=== PATIENT | female | born 1950 | race Caucasian/White ===

== ENCOUNTER 2018-11-06 05:17 | Inpatient (IN) | payer BC, MEDICARE ==
[2018-11-03 15:22] VITALS: BMI 20.5
[2018-11-06] VITALS (27 sets, daily range): BP systolic 106–129; BP diastolic 44–65; PULSE 50–72; RESP 12–24; Ht 167.6 cm; Wt 56.7 kg
[~2018-11-06] VITALS: Ht 167.6 cm; Wt 56.7 kg
[~2018-11-06 05:17] MED LIST: BUPIVACAINE 0.5% (SDV) 30 ML, morphine SULFATE (PF) 8 MG, EPINEPHrine 0.3 MG, KETOROLAC... IRR SCH; CEFAZOLIN 2 GM/50 ML (PMX) 50 ML IVPB ONE; DEXAMETHASONE 1 MG TAB PO ONE; GABAPENTIN 300 MG CAP PO ONE; SOD CHLORIDE 0.9% 100 ML, TRANEXAMIC ACID 3,000 MG IRR ONE; TRANEXAMIC ACID 1GM/100ML(PMX) 100 ML IVPB ONE
[2018-11-06] MEDS ORDERED: LEVO50TA7 PO (05:43)
[2018-11-06] MEDS ORDERED: ATOR40TA68 PO (05:43)
[2018-11-06] MEDS ORDERED: MIRT7.5T8 PO (05:43)
[2018-11-06] MEDS ORDERED: ADV25050 INHALATION (05:43)
--- NOTE | 2018-11-06 05:55 | HPN ---
Date/Time of Note Date/Time of Note DATE: 11/06/18 TIME: 05:54 Interval H&P Admission Note Pt. seen H&P reviewed: No system changes RAMON RAMIREZ MD Nov 06, 2018 05:55
--- NOTE | 2018-11-06 05:58 | OPR ---
Date/Time of Note Date/Time of Note DATE: 11/06/18 TIME: 05:57 Operative Report Procedure Date: Nov 06, 2018 Preoperative Diagnosis Right hip primary arthritis Postoperative Diagnosis Right hip primary arthritis Operation/Procedure Performed 1. Right total hip arthroplasty 2. Injection of PRP Surgeon see signature line Clerical Investigator Ildefonso Carolina MD Anesthesia Type: general Estimated Blood Loss: 150 - 200 ml's Transfusion none Specimen See op note Grafts/Implants See op note Complications none Pt Condition Post Procedure: stable Disposition: PACU Procedure Description Clerical Investigator Surgeon: Ildefonso Carolina MD was integral to the positioning and assistance necessary in the exposure of the hip joint as well as protection of the neurovascular structures. In my opinion at the assistance offered by a surgical dressing maker is insufficient and Dr. Carolina should be compensated for his time. PROCEDURE IN DETAIL: Following the administration of general endotracheal anesthesia supplemented with a spinal anesthetic, the patient was placed in the supine position. The antecubital fossa on the right was prepped and 60 cc of blood were aspirated. Under sterile conditions, the blood was passed off to the consumer sales representative from the company who prepared the PRP solution. The left lower extremity was then prepped and draped in the usual sterile fashion. A evaporator supervisor radiograph was obtained for preliminary limb length and femoral size as well as acetabular size. A lateral incision was then made exposing the tensor fascia the fascia was incised the tensor was retracted laterally and the vessels were cauterized. The anterior capsule was then identified and prepared. A capsulectomy was then performed and the femoral head was then evaluated. Severe arthritic changes were noted. A femoral head cut was then made in the appropriate degree of version and inclination. Following dislocation, severe arthritic changes were noted with very certain severe cystic changes in the femoral head. The acetabulum was then exposed and a capsulectomy and labrectomy were completed. The central portion was then entered and serially reamed up to the 47 mm size. A Depuy [place] cup which was 48 mm, with a standard liner was then fit into position with solid fixation. A 30 mm screw was used for additio nal fixation. Attention was then directed to the femur, the femur was exposed and prepared. The canal was entered and serially reamed up to the size 3. The femoral canal was then thoroughly irrigated and the PRP solution was then instilled into the femoral canal. A size 3 Depuy Actis stem was then inserted with solid fixation. A 28 mm, +1.5 mm femoral head, which was ceramic was then inserted. The leg was taken through full range of motion with no evident instability. In addition, radiographs revealed excellent position with reproduction of the limb lengths within a millimeter. The wound was irrigated thoroughly. The wound was then closed in layers and a Prenio for the final cover. This was watertight. Estimated blood loss was procedure was 200 cc. Postoperative radiographs will be obtained in the recovery room. RAMON RAMIREZ MD Nov 06, 2018 05:58
[2018-11-06] MEDS ORDERED: BUPIVACAINE 0.5% (SDV) 30 ML, morphine SULFATE (PF) 8 MG, EPINEPHrine 0.3 MG, KETOROLAC... IRR SCH ×7 (06:00)
[2018-11-06] MEDS ORDERED: SOD CHLORIDE 0.9% 100 ML, TRANEXAMIC ACID 3,000 MG IRR ONE ×2 (06:00)
[2018-11-06] MEDS ORDERED: DEXAMETHASONE 1 MG TAB PO ONE (06:00)
[2018-11-06] MEDS ORDERED: CEFAZOLIN 2 GM/50 ML (PMX) 50 ML IVPB ONE (06:00)
[2018-11-06] MEDS ORDERED: TRANEXAMIC ACID 1GM/100ML(PMX) 100 ML IVPB ONE (06:00)
[2018-11-06] MEDS ORDERED: LACTATED RINGER'S 1,000 ML IV* SCH (06:00)
[2018-11-06] MEDS ORDERED: GABAPENTIN 300 MG CAP PO ONE (06:00)
[2018-11-06] MEDS ORDERED: POLYMYXIN/BACITRACIN 1L IRRIG ONE (06:44)
[2018-11-06] MEDS ORDERED: THROMBIN (BOVINE) 5,000 UNIT VIAL TP ONE (06:44)
[2018-11-06] MEDS ORDERED: CA CHLORIDE (GM) 10% 10 ML INJ ONE (06:44)
[2018-11-06] MEDS ORDERED: EPHEDrine SULFATE 50 MG/5 ML SYG ONE (07:00)
--- NOTE | 2018-11-06 07:02 | PREAC ---
Date/Time of Note Date/Time of Note DATE: 11/06/18 TIME: 07:00 Anesthesia Eval and Record Evaluation Time Pre-Procedure Interview DATE: 11/06/18 TIME: 07:00 Age 68 Sex female NPO: 8 hrs Preoperative diagnosis Right Hip OA Planned procedure Right THR Past Medical History Past Medical History: Includes Cardio: Dyslipidemia Endo: Hypothyroid Pulm: Asthma Musculoskeletal: Osteoarthritis Psych: Anxiety Surgery & Anesthesia Issues No known issue Meds Anticoagulation: No Beta Fili within 24 hr: No Reason Beta Fili not given: Pt. not on B-Fili Reported Medications Mirtazapine* (Mirtazapine*) 7.5 Mg Tablet, 3-7 MG PO every other day, TAB 11/06/18 Atorvastatin* (Atorvastatin*) 40 Mg Tablet, 20 MG PO QHS, #30 TAB 11/06/18 Levothyroxine Sodium* (Levothyroxine Sodium*) 50 Mcg Tablet, 50 MCG PO BEFORE BREAKFAST, #30 TAB 11/06/18 Salmeterol Xinaf/Fluticasone* (Advair*) 250-50 Diskus Inhaler, 1 INH INHALATION BID, #1 INHALER 11/06/18 Current Medications Bupivacaine HCl/ Morphine Sulfate/ Epinephrine/ Ketorolac Tromethamine/ Clonidine/Sodium Chloride/ Vancomycin HCl INTRA-OP IRR ; Start 11/06/18 at 06:00 Lactated Ringer's 1,000 ml @ 0 mls/hr Q0M IV* Last administered on 11/06/18at 05:49; Admin Dose 30 MLS/HR; Start 11/06/18 at 06:00; Stop 11/06/18 at 18:00 Meds reviewed: Yes Allergies Coded Allergies: No Known Allergy (Unverified , 11/06/18) Allergies Reviewed: Yes Labs/Studies Labs Reviewed: Reviewed by anesthesiologist test: N/A Studies: ECG (n/a), CXR (n/a) Pre-procedure Exam Last vitals Vital Signs Date Temp Pulse Resp B/P (MAP) Pulse Ox O2 O2 Flow FiO2 Time Delivery Rate 11/06/18 98.0 57 18 126/60 100 Room Air 06:03 (82) Airway: Adequate mouth opening, Adequate thyromental dist Mallampati: Mallampati II Teeth: Normal Lung: Normal Heart: Normal ASA Physical Status ASA physical status: 3 Emergency: None Planned Anesthetic General/MAC: ETT, LMA Neuraxial: Spinal Nerve block: Other (Right Fascia Iliaca Block) Planned Pain Management Sub-arachniod narcotics, Single shot nerve block, Parenteral pain med Pre-operative Attestations Prior to commencing anesthesia and surgery, the patient was re-evaluated, there was verification of: *The patient's identity *The results of appropriate recent lab work and preoperative vital signs *The above evaluation not changing prior to induction *Anesthetic plan, risk benefits, alternative and complications discussed with p atient/family; questions answered; patient/family understands, accepts and wishes to proceed. SHAHNAZ ESPARZA MD Nov 06, 2018 07:02
[2018-11-06] MEDS ORDERED: ROCURONIUM 50 MG INJ ONE (07:05)
[2018-11-06] MEDS ORDERED: CEFAZOLIN 1 GM INJ ONE (07:05)
[2018-11-06] MEDS ORDERED: morphine SULFATE/PF (10 MG/10 ML) INJ ONE (07:05)
[2018-11-06] MEDS ORDERED: HYDROCORTISONE 100 MG INJ ONE (07:05)
[2018-11-06] MEDS ORDERED: MIDAZOLAM 1 MG/ML 2 ML INJ ONE (07:05)
[2018-11-06] MEDS ORDERED: PROPOFOL 20 ML ONE (07:05)
[2018-11-06] MEDS ORDERED: TRANEXAMIC ACID 1GM/100ML(PMX) 0 ML ONE (07:25)
[2018-11-06] MEDS ORDERED: TRANEXAMIC ACID 1GM/100ML(PMX) 100 ML ONE (07:25)
[2018-11-06] MEDS ORDERED: ONDANSETRON 4 MG INJ ONE (07:38)
[2018-11-06] MEDS ORDERED: KETOROLAC 30 MG INJ ONE (07:38)
[2018-11-06] MEDS ORDERED: METOCLOPRAMIDE 10 MG INJ ONE (07:38)
[2018-11-06] MEDS ORDERED: DEXAMETHASONE 4 MG/ML 5 ML INJ ONE (07:38)
[2018-11-06] MEDS ORDERED: ROPIVACAINE 0.2% 20 ML VIAL ONE (07:42)
[2018-11-06] MEDS ORDERED: HETASTARCH 6% NACL 500 ML ONE (07:44)
[2018-11-06] MEDS ORDERED: GLYCOPYRROLATE 0.4 MG INJ ONE (07:54)
[2018-11-06] MEDS ORDERED: NEOSTIGMINE 10 MG INJ ONE (07:54)
[2018-11-06] MEDS ORDERED: EPHEDrine SULFATE 50 MG/5 ML SYG IV PRN (08:00)
[2018-11-06] MEDS ORDERED: LABETALOL HCL 20MG INJ IV PRN (08:00)
[2018-11-06] MEDS ORDERED: HYDROmorphONE 0.5 MG/0.5 ML SYG IV PRN ×2 (08:00)
[2018-11-06] MEDS ORDERED: morphine 2 MG INJ IV PRN ×2 (08:00)
[2018-11-06] MEDS ORDERED: METOCLOPRAMIDE 10 MG INJ IV PRN (08:00)
[2018-11-06] MEDS ORDERED: HYDROCODONE/APAP (5/325) TAB PO PRN (08:00)
[2018-11-06] MEDS ORDERED: OXYCODONE/ACETAMINOPHEN (5/325) TAB PO PRN (08:00)
[2018-11-06] MEDS ORDERED: NALOXONE (0.4 MG/ML) INJ IV PRN ×2 (08:00)
[2018-11-06] MEDS ORDERED: ALBUMIN HUMAN 5% 250 ML IV PRN (08:00)
[2018-11-06] MEDS ORDERED: MEPERIDINE 25 MG INJ IV PRN (08:00)
[2018-11-06] MEDS ORDERED: DIPHENHYDRAMINE 50 MG INJ IV PRN ×3 (08:00→09:00)
[2018-11-06] MEDS ORDERED: HYDROmorphONE 1 MG/5 ML IV SYRINGE IV PRN ×3 (08:00)
[2018-11-06] MEDS ORDERED: KETOROLAC 30 MG INJ IV PRN (08:00)
[2018-11-06] MEDS ORDERED: hydrALAzine 20 MG INJ IV PRN (08:00)
[2018-11-06] MEDS ORDERED: NALBUPHINE HCL (10 MG/1 ML) INJ IV PRN (08:00)
[2018-11-06] MEDS ORDERED: FENTAnyl 50 MCG/ML VIAL IV PRN ×3 (08:00)
[2018-11-06] MEDS ORDERED: ONDANSETRON 4 MG INJ IV PRN ×3 (08:00→09:00)
[2018-11-06] MEDS ORDERED: ACETAMINOPHEN 500 MG TAB PO PRN (08:00)
[2018-11-06] MEDS: LACTATED RINGER'S 1,000 ML IV SCH ×3 (08:39→19:51)
--- NOTE | 2018-11-06 08:44 | PDOCDIS ---
Discharge Instructions DIAGNOSIS Discharge Diagnosis Hip arthritis CONDITION [id number] Patient Condition: [id number] Good HOME CARE INSTRUCTIONS: [id number] Diet Instructions: [id number] Regular ACTIVITY: [id number] Activity Restrictions: [id number] Rest between Activity Keep Limb Elevated [id number] Bathing Restrictions: [id number] Shower FOLLOW UP/APPOINTMENTS Follow-up Plan 2 weeks in the office SCHOOL/WORK RELEASE May return to School/Work with: With Restrictions School/Work Release Comment: No hip extension for 6 weeks RAMON RAMIREZ MD Nov 06, 2018 08:44
--- NOTE | 2018-11-06 08:58 | PAC ---
Date/Time of Note Date/Time of Note DATE: 11/06/18 TIME: 08:58 Post-Anesthesia Notes Post-Anesthesia Note Last documented vital signs Vital Signs Date Temp Pulse Resp B/P (MAP) Pulse Ox O2 O2 Flow FiO2 Time Delivery Rate 11/06/18 98.3 57 18 126/60 100 Room Air 09:03 (82) Activity: WNL Respiratory function: WNL Cardiovascular function: WNL Mental status: Baseline Pain reasonably controlled: Yes Hydration appropriate: Yes Nausea/Vomiting absent: Yes SHAHNAZ ESPARZA MD Nov 06, 2018 08:58
[2018-11-06] MEDS ORDERED: HYDROmorphONE 1 MG/ML SYG IV PRN (09:00)
[2018-11-06] MEDS ORDERED: NACL 0.9% 3 ML SYG IV SCH (09:00)
[2018-11-06] MEDS ORDERED: ZOLPIDEM 5 MG TAB PO PRN (09:00)
[2018-11-06] MEDS ORDERED: NON-FORMULARY/PATIENT OWN MED (Salmeterol Xinaf/Fluticasone* (Advair*) 1 INH) INHALATION SCH (09:00)
[2018-11-06] MEDS ORDERED: MAGNESIUM HYDROXIDE 30ML CUP PO PRN (09:00)
[2018-11-06] MEDS ORDERED: oxyCODONE 5 MG TAB PO PRN ×3 (09:00)
[2018-11-06] MEDS: ACETAMINOPHEN 1000MG/100ML IV 100 ML IVPB SCH ×2 (09:37→17:20)
[2018-11-06] MEDS: DEXAMETHASONE 2 MG TAB PO SCH ×2 (12:53→17:20)
[2018-11-06] MEDS: CEFAZOLIN 1 GM/50 ML (PMX) 50 ML IVPB SCH ×2 (13:52→21:52)
[2018-11-06] MEDS ORDERED: ATORVASTATIN 40 MG TAB PO SCH (21:00)
[2018-11-06] MEDS ORDERED: GABAPENTIN 300 MG CAP PO SCH (21:00)
[2018-11-06] MEDS: SENNA/DOCUSATE NA (8.6MG/50MG) TAB PO SCH (21:00)
[2018-11-07 00:01] VITALS: BP 110/58; PULSE 62; RESP 19
[2018-11-07] MEDS: DEXAMETHASONE 2 MG TAB PO SCH ×2 (00:44→06:15)
[2018-11-07] MEDS: ACETAMINOPHEN 1000MG/100ML IV 100 ML IVPB SCH (00:46)
--- NOTE | 2018-11-07 05:21 | PN ---
Date/Time of Note Date/Time of Note DATE: 11/07/18 TIME: 05:20 Subjective Awake and alert with no complaints Objective Vitals Vital Signs Date Temp Pulse Resp B/P (MAP) Pulse Ox O2 O2 Flow FiO2 Time Delivery Rate 11/07/18 98.2 62 19 110/58 98 Room Air 00:01 (75) 11/06/18 2.0 15:15 Intake and Output 11/06/18 11/06/18 11/07/18 1515:00 23:00 07:00 IntakeIntake Total 1270 ml 1580 ml 900 ml OutputOutput Total 500 ml 300 ml 1500 ml BalanceBalance 770 ml 1280 ml -600 ml Wound is clean and dry. Neurologically intact. No signs of DVT. Results Result Diagram: 11/06/18 0917 Medications Medications Current Medications Naloxone HCl (Narcan) 0.2 mg Q2M PRN IV .RESP RATE; Start 11/06/18 at 08:00 Hydromorphone HCl (Dilaudid) 0.2 mg Q2H PRN IV .PAIN 1-5; Start 11/06/18 at 08:00 Hydromorphone HCl (Dilaudid) 0.4 mg Q2H PRN IV .PAIN 6-10; Start 11/06/18 at 08:00 Morphine Sulfate (morphine) 2 mg Q2H PRN IV .PAIN 1-5; Start 11/06/18 at 08:00 Morphine Sulfate (morphine) 4 mg Q2H PRN IV .PAIN 6-10; Start 11/06/18 at 08:00 Ketorolac Tromethamine (Toradol) 30 mg Q6H PRN IV .PAIN 6-10; Start 11/06/18 at 08:00; Stop 11/09/18 at 07:59 Acetaminophen (Tylenol Tab) 500 mg Q4H PRN PO .PAIN 1-3; Start 11/06/18 at 08:00 Acetaminophen/ Hydrocodone Bitart ([place] (5/325)) 1 tab Q4H PRN PO .PAIN 4-6; Start 11/06/18 at 08:00 Diphenhydramine HCl (Benadryl) 25 mg Q4H PRN IV .PRURITUS; Start 11/06/18 at 08:00 Nalbuphine HCl (Nubain) 10 mg Q4H PRN IV .PRURITUS; Start 11/06/18 at 08:00 Naloxone HCl (Narcan) 0.2 mg Q2M PRN IV .RESP RATE; Start 11/06/18 at 08:00 Miscellaneous Information (* Miscellaneous Pharmacy Order) DURAMORPH: 0.1 MG SPI... GIVEN NEURAXIAL XX ; Start 11/06/18 at 08:00 Atorvastatin Calcium (Lipitor) 20 mg QHS PO ; Start 11/06/18 at 21:00 Levothyroxine Sodium (Synthroid) 50 mcg BEFORE BREAKFAST PO ; Start 11/07/18 at 07:00 Mirtazapine (Remeron) 4 mg AM PO ; Start 11/07/18 at 09:00 Lactated Ringer's 1,000 ml @ 100 mls/hr Q10H IV Last administered on 11/06/18at 19:51; Admin Dose 100 MLS/HR; Start 11/06/18 at 08:39 Cefazolin Sodium 50 ml @ 100 mls/hr Q8 IVPB Last administered on 11/06/18at 21:52; Admin Dose 100 MLS/HR; Start 11/06/18 at 14:00; Stop 11/07/18 at 06:29 Senna/Docusate Sodium (Senokot-S) 1 tab BID PO ; Start 11/06/18 at 21:00 Simethicone (Mylicon) 80 mg TID PRN PO .GAS; Start 11/06/18 at 09:00 Magnesium Hydroxide (Milk Of Mag) 30 ml BID PRN PO .CONSTIPATION; Start 11/06/18 at 09:00 Magnesium Hydroxide (Milk Of Mag) 30 ml HS PO ; Start 11/08/18 at 21:00 Dexamethasone (Decadron) 2 mg Q6 PO Last administered on 11/07/18at 00:44; Admin Dose 2 MG; Start 11/06/18 at 12:00; Stop 11/07/18 at 06:01 Gabapentin (Neurontin) 300 mg HS PO ; Start 11/06/18 at 21:00 Oxycodone HCl (Roxicodone) 15 mg Q4H PRN PO .PAIN; Start 11/06/18 at 09:00 Oxycodone HCl (Roxicodone) 10 mg Q4H PRN PO .PAIN; Start 11/06/18 at 09:00 Oxycodone HCl (Roxicodone) 5 mg Q4H PRN PO .PAIN; Start 11/06/18 at 09:00 Hydromorphone HCl (Dilaudid) 1 mg Q4H PRN IV .BREAKTHROUGH PAIN; Start 11/06/18 at 09:00 Ondansetron HCl (Zofran Inj) 4 mg Q6H PRN IV NAUSEA/VOMITING Last administered on 11/06/18at 14:19; Admin Dose 4 MG; Start 11/06/18 at 09:00 Diphenhydramine HCl (Benadryl) 25 mg Q6H PRN IV .PRURITUS; Start 11/06/18 at 09:00 Zolpidem Tartrate (Ambien) 10 mg HS PRN PO .INSOMNIA; Start 11/06/18 at 09:00 IV Flush (NS 3 ml) 3 ml per protocol IV ; Start 11/06/18 at 09:00 Aspirin (Ecotrin) 325 mg DAILY PO ; Start 11/07/18 at 09:00 Fluticasone/ Vilanterol (Breo Ellipta 100-25 Mcg Inh) 1 inh DAILY INH ; Start 11/07/18 at 09:00 VTE Prophylaxis Risk score (from Nsg)>0 risk: 6 SCD applied (from Nsg): Yes Lines/Catheters IV Catheter Type: Saline Lock Tavera in Place: No Assessment/Plan Assessment/Plan Assessment: Status post total hip replacement Plan: Begin physical therapy this morning discharge when independently ambulatory as per physical therapy RAMON RAMIREZ MD Nov 07, 2018 05:21
--- NOTE | 2018-11-07 05:21 | DS ---
Date/Time of Note Date/Time of Note DATE: 11/07/18 TIME: 05:21 Discharge Summary Admission/Discharge Info Admit Date/Time Nov 06, 2018 at 05:17 Discharge Date/Time November 07, 2018 Discharge Diagnosis Hip arthritis Patient Condition: Good Hospital Course Patient was admitted and underwent uncomplicated procedure. Postoperative day #1 she is afebrile stable independently ambulatory discharged home Home Meds Reported Medications Mirtazapine* (Mirtazapine*) 7.5 Mg Tablet, 3-7 MG PO every other day, TAB 11/06/18 Atorvastatin* (Atorvastatin*) 40 Mg Tablet, 20 MG PO QHS, #30 TAB 11/06/18 Levothyroxine Sodium* (Levothyroxine Sodium*) 50 Mcg Tablet, 50 MCG PO BEFORE BREAKFAST, #30 TAB 11/06/18 Salmeterol Xinaf/Fluticasone* (Advair*) 250-50 Diskus Inhaler, 1 INH INHALATION BID, #1 INHALER 11/06/18 Follow-up Plan 2 weeks in the office Primary Care Provider Not On Staff Doctor Pending Labs Laboratory Tests Test 11/06/18 09:17 White Blood Count 6.8 10^3/ul (4.8-10.8) Red Blood Count 3.41 10^6/ul (4.20-5.40) Hemoglobin 10.4 g/dl (12.0-16.0) Hematocrit 31.5 % (37.0-47.0) Mean Corpuscular Volume 92.4 fl (82.0-101.0) Mean Corpuscular Hemoglobin 30.5 pg (29.0-33.0) Mean Corpuscular Hemoglobin Concent 33.0 g/dl (32.0-37.0) Red Cell Distribution Width 12.1 % (11.5-14.5) Platelet Count 231 10^3/UL (140-415) Mean Platelet Volume 10.4 fl (7.4-10.4) Immature Granulocytes % 1.300 % (0.001-0.429) Neutrophils % 85.6 % (39.0-77.0) Lymphocytes % 9.2 % (15.0-51.0) Monocytes % 2.8 % (0.0-11.0) Eosinophils % 0.4 % (0.0-7.0) Basophils % 0.7 % (0.0-2.0) Nucleated Red Blood Cells % 0.0 /100WBC (0.0-0.0) Immature Granulocytes # 0.090 10^3/ul (0.0-0.031) Neutrophils # 5.8 10^3/ul (1.6-7.5) Lymphocytes # 0.6 10^3/ul (0.8-2.9) Monocytes # 0.2 10^3/ul (0.3-0.9) Eosinophils # 0.0 10^3/ul (0.0-0.5) Basophils # 0.1 10^3/ul (0.0-0.1) Nucleated Red Blood Cells # 0.0 10^3/ul (0.0-0.0) RAMON RAMIREZ MD Nov 07, 2018 05:21
[2018-11-07] MEDS: LACTATED RINGER'S 1,000 ML IV SCH (06:14)
[2018-11-07] MEDS: CEFAZOLIN 1 GM/50 ML (PMX) 50 ML IVPB SCH (06:14)
[2018-11-07] MEDS ORDERED: LEVOTHYROXINE 50 MCG TAB PO SCH (07:00)
[2018-11-07 07:34] VITALS: BP 101/50; PULSE 65; RESP 18
[2018-11-07] MEDS ORDERED: FLUTICASONE/VILANTEROL 100-25 INH SCH (09:00)
[2018-11-07] MEDS ORDERED: ASPIRIN (EC) 325 MG TAB PO SCH (09:00)
[2018-11-07] MEDS: SENNA/DOCUSATE NA (8.6MG/50MG) TAB PO SCH (09:00)
[2018-11-07] MEDS ORDERED: MIRTAZAPINE 15 MG TAB PO SCH (09:00)
[2018-11-07 09:20] VITALS: BP 118/59; PULSE 62; RESP 18
[2018-11-07 13:36] VITALS: BP 124/58; PULSE 78; RESP 18
[2018-11-08] MEDS ORDERED: MAGNESIUM HYDROXIDE 30ML CUP PO SCH (21:00)
== END 2018-11-07 15:20 | disposition home or self-care (01) | DRG 470 ==
LOC: REC 05:17 → MS1 10:04
PROVIDERS: ADMIT Orthopaedic Surgery; ATTEND Orthopaedic Surgery
PROC: 0SR904A Replacement of Right Hip Joint with Ceramic on Polyethylene Synthetic Substitute, Uncemented, Open Approach (ICD-10-PCS; principal; 2018-11-06 07:00)
DX: M13.851 Other specified arthritis, right hip (principal); J45.909 Unspecified asthma, uncomplicated
CPT/HCPCS: 72170; 73530; 85025; 86999; 87086; 88304; 88311; 97110; 97116; 97161; C1713; C1776; J0131; J0171; J0690; J0735; J1100; J1720; J1885; J2250; J2274; J2405; J2710; J2765; J2795; J3370; J7120